=== PATIENT | male | born 1940 | race Caucasian/White ===

== ENCOUNTER 2020-10-19 07:29 | Inpatient (IN) | payer MEDICARE, BC ==
[~2020-10-19] VITALS: Ht 180.3 cm; Wt 89.7 kg
--- NOTE | 2020-10-19 07:47 | NUR ---
Throughput: Call to [facility] re: covid results. CN to call back, test not resulted.
--- NOTE | 2020-10-19 08:09 | NUR ---
Throughput: Call back to [facility] spoke with [facility]ERRY, rosyid test still pending there they will call back with result ARP[facility].
--- NOTE | 2020-10-19 08:19 | NUR ---
Throughput: Call back from [facility]; Rapid Covid NEGATIVE they are faxing hard copy.
[2020-10-19] MEDS ORDERED: ONDANSETRON ODT 4 MG PO PRN (08:30)
[2020-10-19] MEDS ORDERED: KETOROLAC 30 MG/1 ML IV PRN ×2 (08:30→10:00)
[2020-10-19] MEDS ORDERED: GLUCAGON 1 MG IM PRN (08:30)
[2020-10-19] MEDS ORDERED: DEXTROSE 50%, 50ML SYRINGE IVPush PRN (08:30)
[2020-10-19] MEDS ORDERED: ONDANSETRON 2MG/ML, 2ML IVPush PRN (08:30)
[2020-10-19] MEDS ORDERED: morphine SULFATE 10 MG/ML, 1ML IVPush PRN (08:30)
[2020-10-19] MEDS ORDERED: ACETAMINOPHEN 325 MG TABLET PO PRN ×2 (08:30→10:00)
[2020-10-19] MEDS ORDERED: DEXTROSE 4 GM TAB.CHEW PO PRN (08:30)
[2020-10-19] MEDS: LACTATED RINGERS 1,000 ML IV SCH ×2 (08:30→23:33)
[2020-10-19] MEDS ORDERED: ENOXAPARIN 40 MG/0.4 ML SQ SCH (08:30)
[2020-10-19 08:49] LABS: INTERNATIONAL NORMALIZED RATIO 1.01 (0.93-1.1); PROTHROMBIN TIME 10.8 Seconds (9.6-11.5)
--- NOTE | 2020-10-19 08:52 | NUR ---
REPORT GIVEN TO OR. [employer] SHEET FILLED OUT. VSS. PT UPDATED ON POC.
[2020-10-19] MEDS: SODIUM CHLORIDE FLUSH 10ML SYR IVF SCH ×2 (09:00→22:59)
[2020-10-19] MEDS ORDERED: FENTANYL PF 250 MCG/5ML ONE ×3 (09:47→15:31)
[2020-10-19] MEDS ORDERED: hydrALAzine 20 MG/ML, 1ML IV PRN (10:00)
[2020-10-19] MEDS ORDERED: ALBUTEROL SULFATE 2.5 MG/3 ML NPPB PRN (10:00)
[2020-10-19] MEDS ORDERED: HYDROmorphone 2 MG/ML, 1ML IVPush PRN (10:00)
[2020-10-19] MEDS ORDERED: MEPERIDINE/PF 25MG/0.5ML IVPush PRN (10:00)
[2020-10-19] MEDS ORDERED: DIAZEPAM 5 MG/ML, 2ML IVPush PRN (10:00)
[2020-10-19] MEDS ORDERED: OXYcodone 5 MG/5 ML ORAL.SOL UDC PO PRN (10:00)
[2020-10-19] MEDS ORDERED: LABETALOL 5MG/ML, 20ML IV PRN (10:00)
[2020-10-19] MEDS ORDERED: FENTANYL PF 100 MCG/2ML IV PRN (10:00)
[2020-10-19] MEDS ORDERED: PROMETHAZINE 25 MG/ML, 1ML IV PRN (10:00)
[2020-10-19] MEDS: INSULIN LISPRO 100 UNITS/ML, PEN SQ-INSULIN SCH ×3 (11:00→23:04)
[2020-10-19] MEDS ORDERED: INSULIN SINGLE DOSE, ER ONE ×2 (11:15→12:44)
[2020-10-19] MEDS ORDERED: INSULIN REGULAR 100 UNITS/ML, 3ML VIAL SQ-INSULIN SCH (11:30)
[2020-10-19] MEDS ORDERED: ACETAMINOPHEN 650 MG/20.3 ML UDC ONE (11:52)
[2020-10-19] MEDS ORDERED: OXYcodone 5 MG/5 ML ORAL.SOL UDC ONE (11:52)
[2020-10-19] MEDS ORDERED: FENTANYL PF 100 MCG/2ML ONE (12:22)
[2020-10-19] MEDS ORDERED: INSULIN REGULAR 100 UNITS/ML, 3ML VIAL SQ-INSULIN ONE (12:30)
[2020-10-19] MEDS ORDERED: LORazepam 1MG TABLET PO PRN (15:00)
[2020-10-19] MEDS ORDERED: HALOPERIDOL 5 MG/ML IVPush PRN (15:00)
[2020-10-19] MEDS ORDERED: CALCIUM CARBONATE 500 MG TAB.CHEW PO PRN (15:00)
[2020-10-19] MEDS ORDERED: SCOPOLAMINE PATCH, 1.5MG PATCH.TD72 TD PRN (15:00)
[2020-10-19] MEDS ORDERED: LORazepam 2 MG/ML, 1ML IVPush PRN (15:00)
[2020-10-19] MEDS ORDERED: DEXAMETHASONE 4 MG/ML, 1ML IVPush PRN (15:00)
[2020-10-19] MEDS ORDERED: TRAZODONE 50MG TABLET PO PRN (15:00)
[2020-10-19] MEDS ORDERED: ONDANSETRON 2MG/ML, 2ML IV PRN (15:00)
[2020-10-19] MEDS ORDERED: DIPHENHYDRAMINE 50 MG/ML, 1ML IVPush PRN (15:00)
[2020-10-19] MEDS ORDERED: HYDROmorphone 1 MG/ML, 1ML INJ IVPush PRN (15:00)
[2020-10-19] MEDS ORDERED: DIPHENHYDRAMINE 25 MG CAPSULE PO PRN (15:00)
[2020-10-19] MEDS ORDERED: OXYcodone IR 5MG TABLET PO PRN (15:00)
[2020-10-19] MEDS ORDERED: INSU100I18 SC (15:29)
[2020-10-19] MEDS ORDERED: INSU100V8 SQ (15:31)
[2020-10-19] MEDS ORDERED: ROCURONIUM 10MG/ML,5ML ONE (15:31)
[2020-10-19] MEDS ORDERED: SUCCINYLCHOLINE 20 MG/ML, 10ML ONE (15:31)
[2020-10-19] MEDS ORDERED: GLYCOPYRROLATE 0.2MG/1ML, 5ML ONE (15:31)
[2020-10-19] MEDS ORDERED: ONDANSETRON 2MG/ML, 2ML ONE (15:31)
[2020-10-19] MEDS ORDERED: CEFAZOLIN 1,000 MG ONE (15:31)
[2020-10-19] MEDS ORDERED: DEXAMETHASONE 4 MG/ML, 1ML ONE (15:31)
[2020-10-19] MEDS ORDERED: NEOSTIGMINE 1 MG/ML, 10ML ONE (15:31)
[2020-10-19] MEDS ORDERED: PROPOFOL 10 MG/ML, 20ML ONE (15:31)
[2020-10-19] MEDS ORDERED: ACEB200C13 PO (15:32)
[2020-10-19] MEDS ORDERED: VALS160T27 PO (15:32)
[2020-10-19] MEDS ORDERED: DILT240C80 PO (15:34)
[2020-10-19] MEDS ORDERED: ALFU10TA PO (15:35)
[2020-10-19] MEDS ORDERED: GABA600T7 PO (15:35)
[2020-10-19] MEDS ORDERED: LORA10TA75 PO (15:36)
[2020-10-19] MEDS ORDERED: ASPI-963 PO (15:36)
[2020-10-19] MEDS: KETOROLAC 30 MG/1 ML IVPush SCH ×2 (17:16→23:09)
[2020-10-19] MEDS: ACETAMINOPHEN 500 MG TABLET PO SCH ×2 (17:16→23:08)
[2020-10-19 18:56] VITALS: BP 108/64
[2020-10-20 00:35] VITALS: BP 136/60
[2020-10-20 03:27] LABS: BASOPHILS % (AUTO) 0 % (0-1); EOSINOPHILS % (AUTO) 0 % (1-7); LYMPHOCYTES % (AUTO) 16 % (22-44); MEAN CORPUSCULAR HEMOGLOBIN 33.6 pg (27.5-34.5); MEAN CORPUSCULAR HGB CONC 33.9 g/dL (33.2-36.2); MEAN PLATELET VOLUME 9.4 fL (7.4-10.4); MONOCYTES % (AUTO) 10 % (2-9); NEUTROPHILS % (AUTO) 75 % (42-75); PLATELET COUNT 151 x10^3/uL (130-400); RED BLOOD COUNT 3.69 x10^6/uL (4.38-5.82); RED CELL DISTRIBUTION WIDTH 13.8 % (9.4-14.8)
[2020-10-20 03:38] LABS: ANION GAP 8 mmol/L (5-15); CHLORIDE 96 mmol/L (98-107)
[2020-10-20 03:40] LABS: CREATININE 0.85 mg/dL (0.7-1.3)
[2020-10-20 04:36] VITALS: BP 147/67
[2020-10-20] MEDS: ACETAMINOPHEN 500 MG TABLET PO SCH ×4 (06:00→22:56)
[2020-10-20] MEDS: KETOROLAC 30 MG/1 ML IVPush SCH ×4 (06:00→22:56)
[2020-10-20] MEDS ORDERED: MAGNESIUM SULFATE PMX 2GM/50ML 50 ML IV ONE (07:00)
[2020-10-20 07:47] VITALS: BP 146/66
[2020-10-20] MEDS: INSULIN LISPRO 100 UNITS/ML, PEN SQ-INSULIN SCH ×5 (07:49→22:59)
[2020-10-20] MEDS: VALSARTAN 160 MG TABLET PO SCH (07:57)
[2020-10-20] MEDS: ENOXAPARIN 40 MG/0.4 ML SQ SCH (09:00)
[2020-10-20] MEDS: SODIUM CHLORIDE FLUSH 10ML SYR IVF SCH ×2 (09:02→22:56)
[2020-10-20 14:13] VITALS: BP 146/72
[2020-10-20] MEDS: LACTATED RINGERS 1,000 ML IV SCH (16:10)
[2020-10-20 18:45] VITALS: BP 165/74
[2020-10-20] MEDS: INSULIN GLARGINE 100 UNITS/ML, PEN SQ-INSULIN SCH (22:59)
[2020-10-21 03:18] VITALS: BP 157/72
[2020-10-21 03:49] LABS: BASOPHILS % (AUTO) 0 % (0-1); EOSINOPHILS % (AUTO) 2 % (1-7); LYMPHOCYTES % (AUTO) 26 % (22-44); MEAN CORPUSCULAR HEMOGLOBIN 33.5 pg (27.5-34.5); MEAN PLATELET VOLUME 9.2 fL (7.4-10.4); MONOCYTES % (AUTO) 8 % (2-9); NEUTROPHILS % (AUTO) 63 % (42-75); PLATELET COUNT 142 x10^3/uL (130-400); RED BLOOD COUNT 3.29 x10^6/uL (4.38-5.82); RED CELL DISTRIBUTION WIDTH 13.8 % (9.4-14.8)
[2020-10-21 03:56] LABS: ANION GAP 6 mmol/L (5-15); CHLORIDE 101 mmol/L (98-107); CREATININE 0.71 mg/dL (0.7-1.3)
[2020-10-21] MEDS: ACETAMINOPHEN 500 MG TABLET PO SCH ×4 (05:12→23:05)
[2020-10-21] MEDS: KETOROLAC 30 MG/1 ML IVPush SCH ×4 (05:12→23:06)
[2020-10-21 07:45] VITALS: BP 142/74
[2020-10-21] MEDS: INSULIN LISPRO 100 UNITS/ML, PEN SQ-INSULIN SCH ×4 (07:45→22:59)
[2020-10-21] MEDS: VALSARTAN 160 MG TABLET PO SCH (07:45)
[2020-10-21] MEDS: DILTIAZEM 240 MG CAP.ER.24H PO SCH (07:46)
[2020-10-21] MEDS: ASPIRIN 81 MG TABLET EC PO SCH (07:46)
[2020-10-21] MEDS: SODIUM CHLORIDE FLUSH 10ML SYR IVF SCH ×2 (07:47→22:57)
[2020-10-21] MEDS: ENOXAPARIN 40 MG/0.4 ML SQ SCH (09:34)
[2020-10-21 15:30] VITALS: BP 126/61
[2020-10-21 19:04] VITALS: BP 144/68
[2020-10-21] MEDS: INSULIN GLARGINE 100 UNITS/ML, PEN SQ-INSULIN SCH (22:59)
[2020-10-22 01:43] VITALS: BP 147/82
[2020-10-22 03:15] LABS: BASOPHILS % (AUTO) 1 % (0-1); EOSINOPHILS % (AUTO) 2 % (1-7); LYMPHOCYTES % (AUTO) 18 % (22-44); MEAN CORPUSCULAR HEMOGLOBIN 33.3 pg (27.5-34.5); MEAN CORPUSCULAR HGB CONC 33.8 g/dL (33.2-36.2); MEAN PLATELET VOLUME 8.6 fL (7.4-10.4); MONOCYTES % (AUTO) 8 % (2-9); NEUTROPHILS % (AUTO) 72 % (42-75); PLATELET COUNT 137 x10^3/uL (130-400); RED BLOOD COUNT 3.34 x10^6/uL (4.38-5.82); RED CELL DISTRIBUTION WIDTH 13.9 % (9.4-14.8)
[2020-10-22 03:27] LABS: ANION GAP 7 mmol/L (5-15); CHLORIDE 100 mmol/L (98-107); CREATININE 0.61 mg/dL (0.7-1.3)
[2020-10-22] MEDS: ACETAMINOPHEN 500 MG TABLET PO SCH ×2 (06:03→11:52)
[2020-10-22] MEDS: KETOROLAC 30 MG/1 ML IVPush SCH ×2 (06:04→11:52)
[2020-10-22] MEDS: INSULIN LISPRO 100 UNITS/ML, PEN SQ-INSULIN SCH ×2 (08:13→11:51)
[2020-10-22] MEDS: VALSARTAN 160 MG TABLET PO SCH (08:14)
[2020-10-22] MEDS: DILTIAZEM 240 MG CAP.ER.24H PO SCH (08:14)
[2020-10-22] MEDS: ENOXAPARIN 40 MG/0.4 ML SQ SCH (08:14)
[2020-10-22] MEDS: ASPIRIN 81 MG TABLET EC PO SCH (08:16)
[2020-10-22] MEDS: SODIUM CHLORIDE FLUSH 10ML SYR IVF SCH (08:16)
[2020-10-22 08:18] VITALS: BP 124/62
[2020-10-22 11:30] VITALS: BP 118/76
== END 2020-10-22 12:20 | disposition home or self-care (01) | DRG 330 ==
LOC: ED 08:26 → EDIP 10:12 → 4NE 13:09
PROVIDERS: ADMIT Internal Medicine; ATTEND Hospitalist
PROC: 0DTH0ZZ Resection of Cecum, Open Approach (ICD-10-PCS; principal; 2020-10-19 08:45)
DX: K56.2 Volvulus (principal); E87.1 Hypo-osmolality and hyponatremia; E11.9 Type 2 diabetes mellitus without complications; I10 Essential (primary) hypertension; K21.9 Gastro-esophageal reflux disease without esophagitis; Z80.0 Family history of malignant neoplasm of digestive organs; Z82.49 Family history of ischemic heart disease and other diseases of the circulatory system; Z87.891 Personal history of nicotine dependence; Z95.0 Presence of cardiac pacemaker; Z90.49 Acquired absence of other specified parts of digestive tract; Z88.2 Allergy status to sulfonamides; Z72.89 Other problems related to lifestyle
CPT/HCPCS: 36415; 80048; 82962; 83036; 83735; 85025; 85610; 88307; 96374; G0378; J0690; J1100; J1650; J1885; J2405; J2704; J2710; J3010; C1765; J0330; J1815; J3475; J7120